=== PATIENT | female | born 1955 | race Caucasian/White ===

== ENCOUNTER 2025-01-15 23:03 | Inpatient (IN) | payer MEDICARE, MEDICAID, SELFPAY ==
--- NOTE | ~2025-01-15 | CT_ITS ---
EXAMINATION: CT HEAD WITHOUT CONTRAST CLINICAL INFORMATION: possibke fall v syncope COMPARISON: None available. TECHNIQUE: Contiguous axial imaging was performed from the skull base to vertex without intravenous administration of contrast. This CT examination was performed using dose optimization techniques as appropriate, variously including the following: *Automated exposure control *Adjustment of mA and/or kV according to patient size (this includes techniques or standardized protocols for targeted exams where dose is matched to indication/reason for exam; i.e. extremities or head) *Use of iterative reconstruction technique DLP: 676 mGy-cm FINDINGS: No acute cortical disruption within the bony calvarium or the included skull base. Patient's motion artifact. No acute intracranial hemorrhage, mass effect, midline shift, hydrocephalus or herniation. Aguilera-white matter differentiation is normal. Posterior cranial fossa contents demonstrated no acute hemorrhage or mass effect. Normal position of the cerebellar tonsils. Sellar/percent region demonstrated no gross masses. Calcified plaques in the cavernous supracavernous segments of the ICAs. Mild multifocal patchy deep periventricular white matter hypodensity. 1.5 cm retention cysts versus polyp, left maxillary sinus. No air-fluid levels in the paranasal sinuses. Secretions in the left nasal cavity. Tympanic cavities and mastoid cells are aerated. No hemorrhage or gross masses in the intraconal or extraconal compartments of the orbits. CT/CT head/brain wo IV con IMPRESSION: No acute fracture or bony calvarium. No acute intracranial hemorrhage. Atherosclerosis disease, intracranial. No acute brain abnormality by CT. Electronically signed by: Alphonso Triana MD 01/16/2025 08:54 AM EDT
--- NOTE | ~2025-01-15 | XR_ITS ---
EXAMINATION: XR CHEST 1 VIEW HISTORY: possible aspiration COMPARISON: There are no prior studies available for comparison. FINDINGS: Two AP portable views of the chest performed at 7:29 AM are submitted. There is hazy opacity in the left lower lung zone which could represent pneumonia or aspiration. The right lung is clear. There is no pleural effusion, pneumothorax, or pulmonary vascular congestion. The heart is normal in size. There is degenerative disc disease of the spine. XR/XR chest 1V IMPRESSION: Hazy opacity in the left lower lung zone which can represent pneumonia or aspiration. Follow-up is recommended. Electronically signed by: Mil Neri MD 01/16/2025 08:02 AM EDT
--- NOTE | ~2025-01-15 | XR_ITS ---
CLINICAL HISTORY: ?hip injury recent or chronic Exam: Pelvis frontal view. Comparison: None Findings: 2 images were obtained. No acute fracture or dislocation. Left hip demonstrates prominent osteophytes, severe joint space narrowing at the weight-bearing portion, heterogeneous subcortical sclerotic changes, femoral head collapsed deformity and lateral subluxation, no erosion. Right hip demonstrates minor osteophytes and mild central joint space narrowing. Unremarkable pubic symphysis and SI joints. Degenerative changes of the included lower lumbar spine, more conspicuous at the L4-5. Unremarkable soft tissue. Impression: Advanced left and mild right hip degenerative changes. This document has been electronically signed by: Nola Carbajal MD on 01/16/2025 08:00:46
[2025-01-15 23:18] VITALS: BP 173/84; PULSE 66; PULSE 75; RESP 20; TEMP 36.9; O2SAT 100; O2SAT 97; BMI 27.3
--- NOTE | 2025-01-15 23:33 | PC.NURSE ---
this RN assumed care of this pt approximately @2320, this pt was BIBLeana from home, OD on a bag of heroine. Pt is A+Ox2 to person and place but not time. Pt is very agitated, non combative, uncooperative w/ care and questions
--- NOTE | 2025-01-15 23:35 | PC.NURSE ---
pt denies SI/HI, safety searched completed by security, contraband removed and disposed by security
[2025-01-16] VITALS (13 sets, daily range): BP systolic 92–149; BP diastolic 50–107; PULSE 53–83; RESP 12–28; TEMP 36.8–37.1; O2SAT 94–97
--- NOTE | 2025-01-16 | ECG_ITS ---
Test Reason : OD Blood Pressure : */* mmHG Vent. Rate : 73 BPM Atrial Rate : 73 BPM P-R Int : 162 ms QRS Dur : 84 ms QT Int : 418 ms P-R-T Axes : 10 41 90 degrees QTcB Int : 460 ms Normal sinus rhythm Normal ECG When compared with ECG of 16-Jan-2025 01:34, No significant change was found Referred By: Jorje Ozuna Electronically Signed By: LISA JOHNSTON
--- NOTE | 2025-01-16 00:23 | PC.NURSE ---
pt's two sons at the bedside, both sons initially searched by security d/t EMS reporting that the two sons also OD's w/ the pt at home. at this time this RN witnessed one son giving the pt an unidentified blue liquid from plastic water bottle. Upon assessment the sons stated Her mouth is really dry , scent of fruity substance notice in room, before this RN asked what it was they had given her the two sons then became agitated and stated Is a doctor going to come and see her? This is crazy she has been here for a minute! Providers made aware, pending new orders
--- NOTE | 2025-01-16 00:31 | ECG_ITS ---
Test Reason : OD Blood Pressure : */* mmHG Vent. Rate : 73 BPM Atrial Rate : 73 BPM P-R Int : 174 ms QRS Dur : 86 ms QT Int : 410 ms P-R-T Axes : 1 39 89 degrees QTcB Int : 451 ms Normal sinus rhythm Minimal voltage criteria for LVH, may be normal variant ( Anshu product ) Borderline ECG No previous ECGs available Referred By: Jorje Ozuna Electronically Signed By: LISA JOHNSTON
--- NOTE | 2025-01-16 00:33 | PC.NURSE ---
pt's daughter called, Owen, states that she is an RN and was requesting an update. Daughter updated on pt condition and plan of care. Daughter Mayra stated that she recommends placing the pt on cardiac monitoring d/t her withdrawals, daughter educated that the pt was BIBA for OD and not withdrawal symptoms and that the pt's ED initial eval did not show any concern requiring cardiac monitoring, however this RN will speak to a provider in order to initiate new orders.
--- NOTE | 2025-01-16 00:51 | ED.OVERDOSE ---
HPI - Overdose General Chief Complaint: Overdose Stated Complaint: Found unresponsive, narcan given, combative Time Seen by Provider: 01/16/25 00:49 History of Present Illness ED Provider: Jorej Ozuna MD HPI Narrative: 69-year-old female limited history due to clinical condition. Apparently was obtunded or on the ground unclear amount of time sons were nearby in the home and felt also to have had respiratory suppression and/or opioid overdose. The patient herself got naloxone x2 was transiently hypoxic and brought in for evaluation. On interview of the patient is not fully cooperative. I asked her and tried to explain to her that we need to get workup including labs she tells me ?I took 1 pill I thought it was cocaine ?she does not recall any details after this. She denies headache neck pain fall chest pain back pain abdominal pain nausea vomiting diarrhea she tells me that she ?has a broken hip ?. Related Data Home Medications ?Medication ?Instructions ?Recorded ?Confirmed methadone 10 mg/mL oral 110 mg PO DAILY 01/16/25 01/16/25 concentrate (Methadone Intensol) Allergies Allergy/AdvReac Type Severity Reaction Status Date / Time No Known Allergies Allergy Verified 01/15/25 23:29 [facility] Past Medical History Medical History (Updated 01/16/25 @ 17:33 by Mey Mendes CNP) Chronic hip pain Social History Social History Patient Tobacco Use Status: Never used Tobacco Smoked in Last 30 Days: No Use of substances other than those prescribed or required for medical reasons: Yes Substance Use Type: Heroin Advance Directives: No Advance Directives Information Provided: Yes Nutrition Risks: No Nutritional Risk Physical Exam Exam: Exam: EXAM: Gen: Alert, delirious confused not oriented sometimes combative and hostile. Dry oral mucosa appears older than stated age. Thin. No obvious overt signs of external trauma Head: Atraumatic Eyes: Anicteric, Normal conjunctiva. 3-4 mm symmetric reactive no proptosis no injury no hyphema ENT: Moist mucosa, no pallor. ? Neck: Supple. No midline tenderness Skin: ?No observable rash or bruising on exposed or examined skin Respiratory: Breathing comfortably, No distress.Clear to auscultation bilaterally, symmetric chest expansion, No wheeze, rales, ronchi. Cardiovascular: Regular rate and rhythm. No murmurs or rub. Well perfused periphery, warm extremities. No edema. ? Abdominal: No focal tenderness. Soft, no objective distension. No palpable masses or obvious organomegaly. ?No guarding, no rebound tenderness or other peritoneal findings. : No flank tenderness. Neuro: Alert. Gross movement of all extremities intact. ? Psych: Delirious, confused. MSK: No grossly visible deformity. Vital signs: See flowsheet Vital Signs: Vital Signs: Last Vital Signs Temp 98.2 F 01/17/25 06:02 Pulse 63 01/17/25 09:08 Resp 18 01/17/25 09:08 BP 126/69 01/17/25 09:08 Pulse Ox 97 01/17/25 09:08 O2 Del Method Room Air 01/17/25 09:08 BMI result Body Mass Index 27.3 Course Course Course Narrative: Jorje Ozuna MD January 16 100: Patient required restraining: Indication for physical or chemical restraint: severe agitation The patient was observed to be agitated disoriented delirious attempting to get out of bed presenting an immediate risk of harm to herself. Verbal de-escalation and redirection techniques were attempted and unsuccessful. Given the patient's impaired decision-making capacity due to delirium/intoxication, and the immediate risk posed, a determination was made that the use of physical followed by chemical restraints was necessary to ensure the safety of the patient and staff and to allow for essential medical/psychiatric evaluation and treatment. The least restrictive measures were chosen, and continuous monitoring was initiated per protocol. This intervention was implemented in accordance with hospital policy and [place] state law regarding emergency restraint use. Date: 01/16/25 Provider: Kolton Day MD 07:02 Patient in physician observation for psychiatric/recovery team evaluation.? Patient presented to the ED with overdose after using a bag of heroin, initially hypoxic but O2 saturation improved to 97% on room air. Patient was agitated on initial presentation and was chemically restrained with a Versed 5 mg IM, Zyprexa 2.5 mg IM and Geodon 20 mg IM. Labs revealed an elevated CK of 507, elevated troponin of 28-repeat labs are pending. CT scan of the head is pending. Alcohol level was below detectable limits. Urine tox screen pending. I will consult recovery team for SUDE evaluation. No acute events reported overnight. No current complaints. VS stable.? Patient is in bed search status/pending CARE team evaluation. Will continue to monitor. 10:52 My interpretation patient's laboratory evaluation is as follows: WBC elevated 11,200. Glucose was elevated 121. AST elevated 33. CK initially was 507 and decreased to 401 which is a downward trend. Urine tox screen was positive for opiates, methadone, fentanyl, benzodiazepines. Alcohol level was below detectable limits. My impression is that the patient may have had a type 2 myocardial injury caused by her use altered mental status secondary to fentanyl overdose. Patient's 1st troponin was elevated at 28.1 and repeat at 06:48 hours was elevated 132.5. I ordered a another repeat at 10:43 hours to see if the patient is trending upward. My interpretation of the patient's 12 EKG done on 01/16/2025 at 08:49 hours is as follows: Sinus bradycardia with a rate of 48, no ST segment elevation, no ST segment depression, inverted T-waves V1 and V2. Compared to an EKG done on 01/16/2025 at 01:36 hours T-wave inversions in V1 and V2 are new. Given her agitation dot required IM chemical restraint and her bradycardia the patient's heroin may have been adulterated with medetomidine (independent marketing consultant sedative). 13:01 I did get more information from patient's son. He states that he injected several bags of ?Nippsy Husle ?heroin. He states that he immediately knew that there was some other drug in the bags that he has since he began hallucinating and became agitated. He states that his mother snorted 1 bag of heroin and passed out and became extremely agitated which is unusual when she uses heroin. Patient's 3rd troponin was 115.2 which is reassuring however this is still significantly high. And I did discuss admission for further monitoring with the covering hospitalist, physician culinary assistant Bernie Mendoza and the patient will be admitted for further treatment. She did ask me to reach out to the tow picker to see if there is any other intervention that needs to be done. 13:21 I did tiger text Dr. Resendiz and he had no specific recommendations regarding the elevated troponin except to treat the patient's drug overdose. Medications Administered Generic Name Dose Route Start Last Admin Trade Name Freq PRN Reason Stop Dose Admin Acetaminophen 650 mg 01/16/25 14:06 01/17/25 06:15 Acetaminophen 325 Mg Tablet PO 650 mg Q6H PRN Administration Pain, Mild 1-3,fever,headache Amoxicillin/Clavulanate Potassium 875 mg 01/16/25 14:45 01/17/25 09:08 Amoxicillin/Potassium Clav 875 Mg Tablet PO 875 mg BID STEPHANIE Administration Aspirin 81 mg 01/17/25 09:00 01/17/25 09:07 Aspirin Enteric Coated 81 Mg Tablet. PO 81 mg DAILY STEPHANIE Administration Lactated Ringer's 1,000 mls @ 80 mls/hr 01/16/25 14:15 01/17/25 03:15 Lr IVCONT 80 mls/hr .[id number] STEPHANIE Administration Sodium Chloride 3 ml 01/16/25 16:00 01/17/25 07:47 0.9 % Sodium Chloride Flush 3 Ml Syringe IVFLUSH Not Given QSHIFT STEPHANIE Discontinued Medications Generic Name Dose Route Start Last Admin Trade Name Freq PRN Reason Stop Dose Admin Sodium Chloride 1,000 mls @ 999 mls/hr 01/16/25 08:18 01/16/25 09:34 Ns IV 01/16/25 09:18 Infused .Q1H1M STA Infusion Methadone HCl 40 mg 01/16/25 17:54 01/16/25 18:06 Methadone Hcl 20 Mg/2 Ml Oral.Conc PO 01/16/25 17:55 40 mg ONCE ONE Administration Midazolam HCl 5 mg 01/16/25 00:49 01/16/25 01:07 Midazolam Hcl 5 Mg/Ml Vial IM 01/16/25 00:50 5 mg ONCE ONE Administration Naloxone HCl 8 mg 01/16/25 00:31 01/16/25 10:43 Naloxone Hcl Nasal Take Home 4 Mg [place] NOSTRILALT 01/16/25 00:32 Not Given ONCE ONE Naloxone HCl 8 mg 01/16/25 00:52 01/16/25 10:44 Naloxone Hcl Nasal Take Home 4 Mg [place] NOSTRILALT 01/16/25 00:53 Not Given ONCE ONE Olanzapine 2.5 mg 01/16/25 00:49 01/16/25 01:07 Olanzapine 10 Mg Vial IM 01/16/25 00:50 2.5 mg STAT STA Administration Ziprasidone 20 mg 01/16/25 02:34 01/16/25 02:41 Ziprasidone Mesylate 20 Mg Vial IM 01/16/25 02:35 20 mg ONCE ONE Administration Medical Decision Making Medical Decision Making MDM Narrative: Medical Decision Makin-year-old female arrived with overdose from home she says it was 1 pill. She did appear to respond to naloxone in the field and was transiently hypoxic this maybe opioid overdose and/or polysubstance or street drug pill contaminant overdose. She is confused and it appears she may have been down on the ground for some time at home and she was initially trying to decline medical workup I do not feel she had the capacity and I feel as obligatory to exclude alternative including toxic or metabolic or infectious etiologies of her encephalopathic presentation. Preliminary Favored Differential Diagnosis: Toxic, metabolic or infectious encephalopathy, dementia, polysubstance use disorder, opioid overdose Plan for broad workup including head and cervical spine CT chest x-ray pelvis x-ray among additional considered etiologies Testing Interpreted Independently: ECG sinus rhythm rate 61 QTC less than 450 no ischemic changes Radiology or Lab testing Results Reviewed: pending, CT pending Consults: Not Applicable Independent Historians/External Chart Reviews: Not Applicable Social Determinants of Health Impacting MDM/Planning: Not Applicable Lab Data 01/16/25 01:58 01/16/25 01:49 Labs: Lab Results 01/16/25 01/16/25 01/16/25 Range/Units 01:49 01:58 06:48 WBC 11.2 H (4.8-10.8) X10*3/uL RBC 4.87 (4.20-5.50) X10*6/uL Hgb 13.5 (12.0-16.0) g/dl Hct 39.6 (37.0-47.0) % MCV 81.3 (80.0-98.0) fL MCH 27.7 (27.0-33.0) pg MCHC 34.1 (31.0-35.0) g/dl RDW 12.9 (11.0-16.0) % Plt Count 238 (160-400) X10*3/uL MPV 9.1 L (9.4-12.3) fL Immature Gran % (Auto) 0.4 (0.0-0.4) % Neut % (Auto) 77.0 H (45-73) % Lymph % (Auto) 10.6 L (20-40) % [place] % (Auto) 8.1 (2-11) % Eos % (Auto) 3.2 (0-4) % Baso % (Auto) 0.7 (0-2) % Lymph # (Auto) 1.2 (1.2-4.9) X10*3/uL [place] # (Auto) 0.9 (0.1-1.2) X10*3/uL Eos # (Auto) 0.4 (0.0-0.4) X10*3/uL Baso # (Auto) 0.1 (0.0-0.2) X10*3/uL Abs Immat Gran (auto) 0.04 H (0.00-0.03) X10*3/uL Absolute Neuts (auto) 8.6 H (2.0-8.3) x10*3/uL Absolute Nucleated RBC 0.000 (0.0-0.012) X10*3/uL Nucleated RBC % (auto) 0.0 (0.0-0.2) /100WBC Sodium 138 (135-145) mmol/L Potassium 4.1 (3.3-5.1) mmol/L Chloride 102 (96-108) mmol/L Carbon Dioxide 24 (22-29) mmol/L Anion Gap 16 (12-20) BUN 14 (9-16) mg/dL Creatinine 0.92 (0.5-1.4) mg/dL Estim Creat Clear Calc 49.2 Estimated GFR > 60 Random Glucose 121 H (60-115) mg/dL Calcium 9.5 (8.4-10.2) mg/dL Magnesium 2.2 (1.6-2.6) mg/dL Total Bilirubin 0.6 (0.0-1.0) mg/dL AST 33 H (5-31) U/L ALT 15 (0-31) U/L Alkaline Phosphatase 81 (39-117) U/L Total Creatine Kinase 507 H 401 H (26-140) U/L Troponin I High Sens 28.1 H 132.5 H* D (<3.5-17.0) ng/L Total Protein 7.6 (6.5-8.0) g/dL Albumin 4.6 (3.5-5.0) g/dL Salicylates < 5.0 L (15-30) mg/dL Urine Opiates Screen (Not Detect) Ur Buprenorphine Scrn (Not Detect) ng/mL Ur Oxycodone Screen (Not Detect) ng/mL Urine Methadone Screen (Not Detect) ng/mL Urine Fentanyl Screen (Not Detect) Acetaminophen < 3 (<30) mcg/mL Ur Barbiturates Screen (Not Detect) Ur Phencyclidine Scrn (Not Detect) Ur Amphetamines Screen (Not Detect) U Benzodiazepines Scrn (Not Detect) Urine Cocaine Screen (Not Detect) U Marijuana (THC) Screen (Not Detect) Ethyl Alcohol < 10 mg/dL 01/16/25 01/16/25 Range/Units 07:10 12:11 WBC (4.8-10.8) X10*3/uL RBC (4.20-5.50) X10*6/uL Hgb (12.0-16.0) g/dl Hct (37.0-47.0) % MCV (80.0-98.0) fL MCH (27.0-33.0) pg MCHC (31.0-35.0) g/dl RDW (11.0-16.0) % Plt Count (160-400) X10*3/uL MPV (9.4-12.3) fL Immature Gran % (Auto) (0.0-0.4) % Neut % (Auto) (45-73) % Lymph % (Auto) (20-40) % [place] % (Auto) (2-11) % Eos % (Auto) (0-4) % Baso % (Auto) (0-2) % Lymph # (Auto) (1.2-4.9) X10*3/uL [place] # (Auto) (0.1-1.2) X10*3/uL Eos # (Auto) (0.0-0.4) X10*3/uL Baso # (Auto) (0.0-0.2) X10*3/uL Abs Immat Gran (auto) (0.00-0.03) X10*3/uL Absolute Neuts (auto) (2.0-8.3) x10*3/uL Absolute Nucleated RBC (0.0-0.012) X10*3/uL Nucleated RBC % (auto) (0.0-0.2) /100WBC Sodium (135-145) mmol/L Potassium (3.3-5.1) mmol/L Chloride (96-108) mmol/L Carbon Dioxide (22-29) mmol/L Anion Gap (12-20) BUN (9-16) mg/dL Creatinine (0.5-1.4) mg/dL Estim Creat Clear Calc Estimated GFR Random Glucose (60-115) mg/dL Calcium (8.4-10.2) mg/dL Magnesium (1.6-2.6) mg/dL Total Bilirubin (0.0-1.0) mg/dL AST (5-31) U/L ALT (0-31) U/L Alkaline Phosphatase (39-117) U/L Total Creatine Kinase (26-140) U/L Troponin I High Sens 115.2 H* (<3.5-17.0) ng/L Total Protein (6.5-8.0) g/dL Albumin (3.5-5.0) g/dL Salicylates (15-30) mg/dL Urine Opiates Screen POSITIVE H (Not Detect) Ur Buprenorphine Scrn Not Detected (Not Detect) ng/mL Ur Oxycodone Screen Not Detected (Not Detect) ng/mL Urine Methadone Screen Positive H (Not Detect) ng/mL Urine Fentanyl Screen POSITIVE H (Not Detect) Acetaminophen (<30) mcg/mL Ur Barbiturates Screen Not Detected (Not Detect) Ur Phencyclidine Scrn Not Detected (Not Detect) Ur Amphetamines Screen Not Detected (Not Detect) U Benzodiazepines Scrn POSITIVE H (Not Detect) Urine Cocaine Screen Not Detected (Not Detect) U Marijuana (THC) Screen Not Detected (Not Detect) Ethyl Alcohol mg/dL Critical Care Time Critical Care Time Critical Care Time: Yes Total Critical Care Time: 55 Attestation: Critical Care: The patient was critically ill with a high probability of imminent or life threatening deterioration. I spent greater than 30 minutes of discontinuous time evaluating the patient,delivering critical care at the bedside, discussing and evaluating pertinent data with consultants. Critical care time does not include time spent performing separately billable procedures or teaching. Total time spent performing critical care was 55 minutes. Discharge Plan Discharge Clinical Impression: Heroin abuse, Fentanyl use disorder, moderate, Myocardial injury, Acute drug intoxication with delirium Acute drug overdose Qualifiers: Encounter type: initial encounter Injury intent: accidental or unintentional Qualified Code(s): T50.901A - Poisoning by unspecified drugs, medicaments and biological substances, accidental (unintentional), initial encounter Patient Disposition: Admitted As Inpatient
[2025-01-16] MEDS: OLANZapine 10 MG VIAL 2.5 MG IM (01:07)
[2025-01-16 02:04] LABS: MANUAL DIFF FLAG NO
[2025-01-16 02:06] LABS: Hematocrit 39.6 % (37.0-47.0); Hemoglobin 13.5 g/dl (12.0-16.0); Imm Gran Abs Auto 0.04 X10*3/uL (0.00-0.03); Imm Gran Pct Auto 0.4 % (0.0-0.4); Lymphocytes Absolute Auto 1.2 X10*3/uL (1.2-4.9); Mean Corpuscular HGB Conc 34.1 g/dl (31.0-35.0); Mean Corpuscular Hemoglobin 27.7 pg (27.0-33.0); Mean Corpuscular Volume 81.3 fL (80.0-98.0); NRBC Abs Auto 0.000 X10*3/uL (0.0-0.012); NRBC Pct Auto 0.0 /100WBC (0.0-0.2); Platelet Count 238 X10*3/uL (160-400); Red Blood Count 4.87 X10*6/uL (4.20-5.50); White Blood Count 11.2 X10*3/uL (4.8-10.8)
[2025-01-16 02:07] LABS: Alanine Aminotransferase 15 U/L (0-31); Albumin Level 4.6 g/dL (3.5-5.0); Alkaline Phosphatase 81 U/L (39-117); Anion Gap 16 (12-20); Aspartate Amino Transferase 33 U/L (5-31); Blood Urea Nitrogen 14 mg/dL (9-16); Calcium 9.5 mg/dL (8.4-10.2); Carbon Dioxide 24 mmol/L (22-29); Chloride 102 mmol/L (96-108); Creatinine Clr Calc Pharmacy 49.2; Estimated Glomerular Filt Rate > 60; Potassium 4.1 mmol/L (3.3-5.1); Sodium 138 mmol/L (135-145); Total Protein 7.6 g/dL (6.5-8.0)
[2025-01-16 02:14] LABS: Troponin-I High Sensitivity 28.1 ng/L (<3.5-17.0)
[2025-01-16 02:30] LABS: Acetaminophen LAB < 3 mcg/mL (<30); Salicylate < 5.0 mg/dL (15-30)
--- NOTE | 2025-01-16 07:02 | PC.NURSE ---
Pt awake, bladder scan >1000 mL. Pt sat up to edge of bed and self transferred to bedside commode. Urine sample pending.
[2025-01-16 07:29] LABS: Troponin-I High Sensitivity 132.5 ng/L (<3.5-17.0)
[2025-01-16 07:35] LABS: Cannabinoid Screen Urine Not Detected (Not Detect)
--- NOTE | 2025-01-16 08:21 | ECG_ITS ---
Test Reason : QT CHECK Blood Pressure : */* mmHG Vent. Rate : 48 BPM Atrial Rate : 48 BPM P-R Int : 170 ms QRS Dur : 82 ms QT Int : 576 ms P-R-T Axes : 3 -1 94 degrees QTcB Int : 514 ms Sinus bradycardia Prolonged QT Abnormal ECG When compared with ECG of 16-Jan-2025 01:36, Vent. rate has decreased by 25 bpm QT has lengthened Referred By: Kolton Day Electronically Signed By: LISA JOHNSTON
--- NOTE | 2025-01-16 08:28 | PC.NURSE ---
during change of shift pt was bladder scanned and had about 1000ml in bladder. she was assisted to commode and urinated 400ml. PVR scan was ~700ml. Pt BP soft, pt lethargic and only wakes to painful stimuli. Dr. Day notified of these findings. 1Liter of NS infusing now. Pt refused harris catheter at this time. plan to monitor urine output.
--- NOTE | 2025-01-16 11:15 | MHC.EDTECH ---
Patient refused the blood work for her troponin, patient afraid of needles due to her childhood Nurse aware
--- NOTE | 2025-01-16 12:25 | PC.NURSE ---
Patient is a 69 female presented to the ED with overdose after using a bag of heroin, initially hypoxic but O2 saturation improved to 97% on room air. Received narcan 8mg in the field. Patient was agitated on initial presentation and was chemically restrained with a Versed 5 mg IM, Zyprexa 2.5 mg IM and Geodon 20 mg IM. Labs revealed an elevated CK of 507, elevated troponin of 28, 2nd troponin elevated and third troponin sent. Patient alert and sleepy. threat monitoring analyst maintained and NSR noted. Lungs with left base crackles. Respirations even and non-labored. Abdomen flat, soft, non-tender with positive bowel sounds. Positive pedal pulses with no edema. Voided 900cc of straw colored urine.
[2025-01-16 12:53] LABS: Troponin-I High Sensitivity 115.2 ng/L (<3.5-17.0)
--- NOTE | 2025-01-16 13:02 | HE.PHANOTE ---
RE: METHADONE DOSING Patient received methadone 110 mg on 01/14/25 @0708 with 6 take home bottles per [facility] at [facility] [phone]. Patient last took her at home dose on 01/15/25 am per nurse Raya Jordan.
--- NOTE | 2025-01-16 14:10 | P.HPHOSP_ITS ---
History of Present Illness Date of Service: 01/16/25 Attending physician on admission: Marge Epps Chief Complaint: Overdose This is a 69-year-old female who presented to the emergency department with an overdose after using heroin. On arrival she was initially hypoxic but her oxygen saturation improved. She received Narcan in the field patient became agitated and required chemical restraint with Versed, Zyprexa and Geodon. Lab work revealed elevated CPK of 5 7, troponin 28 which increased to 132 on repeat. She was initially on observation but due to elevated cardiac enzymes the decision was made to admit her for further evaluation. Patient denies any chest pain, shortness of breath. Her 3rd troponin decreased to 115.2. EKG showed sinus bradycardia with prolonged QT of 514. Tox screen was positive for opiates, methadone, fentanyl, benzodiazepines. Patient reports using 5 bags of heroin daily. Chest x-ray showed hazy opacity in the left lower lung zone which could represent pneumonia or aspiration. Review of Systems 2 Review of Systems: Yes all other systems are reviewed and are negative Constitutional: Constitutional: Denies chills and Denies fever(s) Cardiovascular: Cardiovascular: Denies chest pain, Denies palpitations and Denies dyspnea Respiratory: Respiratory: Denies cough and Denies dyspnea Gastrointestinal: Gastrointestinal: Denies abdominal pain Endocrine: Endocrine: Denies palpitations [facility] Medical History (Updated 01/16/25 @ 17:33 by Mey Mendes CNP) Chronic hip pain Social History Patient Tobacco Use Status: Never used Tobacco Smoked in Last 30 Days: No Use of substances other than those prescribed or required for medical reasons: Yes Substance Use Type: Heroin Advance Directives: No Advance Directives Information Provided: Yes Nutrition Risks: No Nutritional Risk Meds Allergies Allergy/AdvReac Type Severity Reaction Status Date / Time No Known Allergies Allergy Verified 01/15/25 23:29 Active Medications: Current Medications Acetaminophen (Acetaminophen 325 Mg Tablet) 650 mg PO Q6H PRN PRN Reason: Pain, Mild 1-3,fever,headache Calcium Carbonate (Calcium Carbonate 750 Mg Tab.Chew) 750 mg PO Q4H PRN PRN Reason: Heartburn Magnesium Hydroxide (Milk Of Magnesia 30 Ml Oral.Susp) 30 ml PO DAILY PRN PRN Reason: Constipation Melatonin (Melatonin 3 Mg Tablet) 6 mg PO BEDTIME PRN PRN Reason: Insomnia Sodium Chloride (0.9 % Sodium Chloride Flush 3 Ml Syringe) 3 ml IVFLUSH QSHIFT STEPHANIE Home Medications ?Medication ?Instructions ?Recorded ?Confirmed ?Last Taken ?Type methadone 10 mg/mL oral 110 mg PO DAILY 01/16/2502/0201/15/25 History concentrate (Methadone Intensol) Physical Exam 2 Vital Signs and Narrative: Vital Signs: Last Vital Signs Temp 98.3 F 01/16/25 08:00 Pulse 53 01/16/25 12:00 Resp 12 01/16/25 12:00 BP 92/50 L 01/16/25 12:00 Pulse Ox 94 01/16/25 12:00 O2 Del Method Room Air 01/16/25 12:00 BMI result Body Mass Index 27.3 Const: General: cooperative, comfortable, alert and awake O rientation/consciousness: patient oriented x3 Resp: Other: left basilar rales Effort & Inspection: normal respiratory effort, able to speak in complete sentences, no respiratory distress and no use of accessory muscles Cardio: Rate: regular rate GI: Palpation (GI): Soft to palpation Neuro: Other: Grossly nonfocal General: patient oriented x3 Results Labs 01/16/25 01:58 01/16/25 01:49 Labs: Laboratory Results - last 24 hr 01/16/25 01/16/25 01/16/25 01:49 01:58 06:48 MCV 81.3 MCH 27.7 MCHC 34.1 RDW 12.9 Plt Count 238 MPV 9.1 L Immature Gran % (Auto) 0.4 Neut % (Auto) 77.0 H Lymph % (Auto) 10.6 L Meriwether % (Auto) 8.1 Eos % (Auto) 3.2 Baso % (Auto) 0.7 Lymph # (Auto) 1.2 Meriwether # (Auto) 0.9 Eos # (Auto) 0.4 Baso # (Auto) 0.1 Abs Immat Gran (auto) 0.04 H Absolute Neuts (auto) 8.6 H Absolute Nucleated RBC 0.000 Nucleated RBC % (auto) 0.0 Anion Gap 16 Estim Creat Clear Calc 49.2 Estimated GFR > 60 Random Glucose 121 H Calcium 9.5 Total Bilirubin 0.6 AST 33 H ALT 15 Alkaline Phosphatase 81 Total Creatine Kinase 507 H 401 H Total Protein 7.6 Albumin 4.6 Salicylates < 5.0 L Urine Opiates Screen Ur Buprenorphine Scrn Ur Oxycodone Screen Urine Methadone Screen Urine Fentanyl Screen Acetaminophen < 3 Ur Barbiturates Screen Ur Phencyclidine Scrn Ur Amphetamines Screen U Benzodiazepines Scrn Urine Cocaine Screen U Marijuana (THC) Screen Ethyl Alcohol < 10 01/16/25 07:10 MCV MCH MCHC RDW Plt Count MPV Immature Gran % (Auto) Neut % (Auto) Lymph % (Auto) Meriwether % (Auto) Eos % (Auto) Baso % (Auto) Lymph # (Auto) Meriwether # (Auto) Eos # (Auto) Baso # (Auto) Abs Immat Gran (auto) Absolute Neuts (auto) Absolute Nucleated RBC Nucleated RBC % (auto) Anion Gap Estim Creat Clear Calc Estimated GFR Random Glucose Calcium Total Bilirubin AST ALT Alkaline Phosphatase Total Creatine Kinase Total Protein Albumin Salicylates Urine Opiates Screen POSITIVE H Ur Buprenorphine Scrn Not Detected Ur Oxycodone Screen Not Detected Urine Methadone Screen Positive H Urine Fentanyl Screen POSITIVE H Acetaminophen Ur Barbiturates Screen Not Detected Ur Phencyclidine Scrn Not Detected Ur Amphetamines Screen Not Detected U Benzodiazepines Scrn POSITIVE H Urine Cocaine Screen Not Detected U Marijuana (THC) Screen Not Detected Ethyl Alcohol Imaging Radiologist's Impressions: Impressions Chest X-Ray 01/16/25 06:28 IMPRESSION: Hazy opacity in the left lower lung zone which can represent pneumonia or aspiration. Follow-up is recommended. Electronically signed by: Mil Neri MD 01/16/2025 08:02 AM EDT RP Head CT 01/16/25 07:34 IMPRESSION: No acute fracture or bony calvarium. No acute intracranial hemorrhage. Atherosclerosis disease, intracranial. No acute brain abnormality by CT. Electronically signed by: Alphonso Triana MD 01/16/2025 08:54 AM EDT RP Assessment and Plan (1) Heroin abuse: Status: Acute (2) Acute drug overdose: Qualifiers: Encounter type: initial encounter Injury intent: accidental or unintentional Qualified Code(s): T50.901A - Poisoning by unspecified drugs, medicaments and biological substances, accidental (unintentional), initial encounter Status: Acute Plan This is a 69-year-old female with history of opiate abuse on methadone who was brought into the emergency department with presumed drug overdose found to have elevated cardiac enzymes NSTEMI Likely type 2 secondary to demand from drug overdose Troponin peaked at 132 No chest pain Monitor on telemetry, obtain echocardiogram to evaluate for wall motion abnormality Cardiology consultation Drug overdose/history of substance use hold methadone for prolonged QT addiction med consult mild elevation in CPK like gentle IVF follow CPK possible pneumonia cxr with opacity LLL ? pna or aspiration no respiratory symptoms, no hypoxia po augmentin dvt ppx - mechanical devices code status - full code Quality Stroke Does the patient have a stroke diagnosis?: No VTE Prior VTE?: No VTE Risk Level:: Medical - moderate - high VTE Device Contraindication: N/A - Device Ordered VTE Drug Contraindication: N/A - Med Ordered
[2025-01-16] MEDS: Lactated Ringers 1,000 ML 80 ML IVCONT (14:46)
[2025-01-16 14:54] LABS: Magnesium 2.2 mg/dL (1.6-2.6)
--- NOTE | 2025-01-16 15:00 | CA_ITS ---
Transthoracic Echocardiogram Patient (Last, First, Middle): Kristine Marques Ann Gender: Female Date of : 1955 Age: 69 Procedure Date: 01/16/2025 Procedure Type: Transthoracic Echocardiogram Location: ER Height: 154.94 cm Weight: 65.32 kg BSA: 1.64 m2 Heart Rate: 55 bpm BP: 103 / 67 mmHg Marketing Operations Associate: SB Referring MD: Bernie DUTTON Symptoms: NSTEMI Study Quality: Fair ECG Rhythm: Bradycardia Conclusions: - The left ventricular systolic function is normal. The calculated ejection fraction is 62% by biplane method. - No obvious valvular pathology seen on this study. Findings Procedure Information The quality of the study was technically difficult. The study quality is limited by the patients inability to tolerate the test and lung artifact. Left Ventricle Normal left ventricular cavity size. There is normal left ventricular wall thickness. The left ventricular systolic function is normal. The calculated ejection fraction is 62% by biplane method. There is no evidence of regional wall motion abnormalities. Diastolic function is normal for age. Right Ventricle Normal right ventricular cavity size and systolic function. Atria Both atria are normal in size. Aortic Valve There is a normal trileaflet aortic valve. There is no aortic valve stenosis. There is no aortic valve regurgitation. Mitral Valve There is mild anterior mitral leaflet thickening. There is no mitral valve regurgitation. There is no mitral valve stenosis. Pulmonic Valve The pulmonic valve is likely normal. Tricuspid Valve There is mild tricuspid valve regurgitation. There is no evidence of pulmonary hypertension. Great Vessels The asc aorta is normal in size. Venous The inferior vena cava is normal in size and collapses greater than 50% with inspiration. Pericardium/Pleural There is no evidence of pericardial effusion. Prior Study Comparison No prior study available for comparison. Recommendations, Care & Conclusions No obvious valvular pathology seen on this study. Measurements 2D Linear Measurements IVSd: 0.62 0.6-0.9/0.6-1.0 cm LVIDd: 4.68 3.9-5.3/4.2-5.9 cm LVIDd Index: 2.85 2.4-3.2/2.2-3.1 cm/m2 LVIDs: 3.14 2.0-3.6 cm LVPWd: 0.66 0.7-1.1 cm LA Diam: 3.50 2.7-3.8/3.0-4.0 cm LAIDs Index: 2.13 1.5-2.3 cm/m2 LV Mass: 113.91 67-162/88-224 g LV Mass Index: 69.46 43-95/49-115 g/m2 LVOT Diam: 2.00 3.0+(-)1.3 cm 2D Systolic Function EF 4C: 59.60 >55% EF 2C: 67.30 >55% EF BiP: 61.80 >55% Mitral Valve MV Pk E: 0.45 MV PK A: 0.75 MV Decel Time: 400.00 E/A: 0.60 E'Lateral: 5.87 E'Medial: 4.90 E/E' Med: 9.20 E/E' Lat: 7.70 PHT: 117.00 MVA PHT: 1.88 Decel Stephenson: 1.13 Aortic Valve AoV Pk Bebeto: 1.20 AoV Pk Grad: 6.00 IVAN: 2.72 LVOT LVOT Pk Bebeto: 0.97 LVOT Mn Bebeto: 0.69 LVOT VTI: 0.24 LVOT Pk Grad: 4.00 LVOT Mn Grad: 2.00 LVOT Diam: 2.00 LVOT Area: 3.14 Diastolic Function MV Pk E: 0.45 MV Pk A: 0.75 E/A: 0.60 E'Medial: 4.90 E/E' Med: 9.20 E' Laterial: 5.87 E/E' Lat: 7.70 Right Ventricle TAPSE (mm): 23.40 TVS' Bebeto: 13.80 Tricuspid Valve TR Pk Bebeto: 2.32 TR Pk Grad: 22.00 RA Press: 3.00 RVSP: 25.00 Great Vessels Aorta Sinus of Valsalva: 2.40 2.0-3.5 cm Ao Asc: 2.80 2.1-3.4 cm Pulmonary Veins Pulm Vein S/D 1.30 Pulmonary Valve PV Pk Bebeto: 0.81 Peak PV Grad: 3.00 Updated in Other Vendor System with Status of Final Richard Resendiz MD electronically signed on 01/16/2025 4:00:25 PM with status of Final
--- NOTE | 2025-01-16 15:02 | PC.NURSE ---
Echo at the bedside
--- NOTE | 2025-01-16 15:23 | PHA.MEDREC ---
Addendum entered by Lalitha Andrew [facility] 01/16/25 15:37: REVIEWED Original Note: Pharmacy Consult ? Medication Reconciliation Pharmacy has completed the medication reconciliation. Spoke with pt daughter over the phone and she confirmed she knows her mom is taking Methdone daily but other then that she is pretty sure her mother is not taking anything else at this time; I called pt pharmacy where daughter said she went ([facility]) and they have not filled anything for the pt in over a year.
--- NOTE | 2025-01-16 17:33 | HO.ADDICT_ITS ---
History of Present Illness Date of Service: 01/16/2025 Chief Complaint: nstemi od Reason for Consult: opioid overdose Sources of Information: patient interviewed and chart reviewed HPI Narrative: Patient is a 69 year old female who presented to [facility] with concern for opioid overdose. In ambulance required narcan administration and while in ED became quite agitated and required IM medications. Patient admitted with NSTEMI, and question of pneumonia. per chart review, patient reported that she believed she was using cocaine. Son stated he observed her using one bag of fentanyl IN, and she quickly became agitated (which is not the norm for her). Patient seen in room 11 of main ED. She is awake, alert, engaged in interview. Denies any history of illicit opiate use. Reports that she believed she was taking a percocet for her hip pain. She denies any history of overdose. She is engaged in treatment with [facility] and prescribed methadone 110mg QD. Reports that she started methadone after years of being prescribed pain medications and then abruptly discontinuing. Discussed overdose and cardiac concerns Patient somewhat dismissive in attempt to move on from the topic, I will never take another pill again that I didn't get from the pharmacy . Denies any withdrawal sx or pain. Last methadone dose 110mg on 01/15. Labs and EKG reviewed --QTcB 514. Medical Evaluation Reviewed: Yes Review of Systems Constitutional: Reports as per HPI and Reports no additional constitutional complaints Diagnostics Vital Signs (24Hr): Vital Signs - 24 hr 01/15/25 23:18 01/16/25 01:07 01/16/25 01:29 Temperature 98.5 F Pulse Rate 75 71 71 Respiratory Rate 20 23 H 24 H Blood Pressure 173/84 H 147/90 H 149/90 H Pulse Oximetry 100 94 97 Oxygen Delivery Method Room Air Room Air Room Air 01/16/25 01:44 01/16/25 01:59 01/16/25 02:00 Temperature Pulse Rate 78 77 83 Respiratory Rate 20 20 28 H Blood Pressure 138/98 H 136/107 H 143/99 H Pulse Oximetry 95 96 97 Oxygen Delivery Method Room Air Room Air Room Air 01/16/25 02:43 01/16/25 04:32 01/16/25 06:00 Temperature 98.7 F Pulse Rate 74 76 Respiratory Rate 20 16 20 Blood Pressure 139/97 H Pulse Oximetry 97 Oxygen Delivery Method Room Air 01/16/25 08:00 01/16/25 09:34 01/16/25 12:00 Temperature 98.3 F Pulse Rate 57 53 53 Respiratory Rate 17 15 12 Blood Pressure 119/76 92/50 L Pulse Oximetry 94 97 94 Oxygen Delivery Method Room Air Room Air Room Air 01/16/25 16:00 Temperature Pulse Rate 60 Respiratory Rate 22 H Blood Pressure 115/67 Pulse Oximetry 95 Oxygen Delivery Method Room Air BMI result Body Mass Index 27.3 Labs 01/16/25 01:58 01/16/25 01:49 Labs: Laboratory Results - last 48 hr 01/16/25 01/16/25 01/16/25 01:49 01:58 06:48 WBC 11.2 H RBC 4.87 Hgb 13.5 Hct 39.6 MCV 81.3 MCH 27.7 MCHC 34.1 RDW 12.9 Plt Count 238 MPV 9.1 L Immature Gran % (Auto) 0.4 Neut % (Auto) 77.0 H Lymph % (Auto) 10.6 L Nance % (Auto) 8.1 Eos % (Auto) 3.2 Baso % (Auto) 0.7 Lymph # (Auto) 1.2 Nance # (Auto) 0.9 Eos # (Auto) 0.4 Baso # (Auto) 0.1 Abs Immat Gran (auto) 0.04 H Absolute Neuts (auto) 8.6 H Absolute Nucleated RBC 0.000 Nucleated RBC % (auto) 0.0 Sodium 138 Potassium 4.1 Chloride 102 Carbon Dioxide 24 Anion Gap 16 BUN 14 Creatinine 0.92 Estim Creat Clear Calc 49.2 Estimated GFR > 60 Random Glucose 121 H Calcium 9.5 Magnesium 2.2 Total Bilirubin 0.6 AST 33 H ALT 15 Alkaline Phosphatase 81 Total Creatine Kinase 507 H 401 H Troponin I High Sens 28.1 H 132.5 H* D Total Protein 7.6 Albumin 4.6 Salicylates < 5.0 L Urine Opiates Screen Ur Buprenorphine Scrn Ur Oxycodone Screen Urine Methadone Screen Urine Fentanyl Screen Acetaminophen < 3 Ur Barbiturates Screen Ur Phencyclidine Scrn Ur Amphetamines Screen U Benzodiazepines Scrn Urine Cocaine Screen U Marijuana (THC) Screen Ethyl Alcohol < 10 01/16/25 01/16/25 07:10 12:11 WBC RBC Hgb Hct MCV MCH MCHC RDW Plt Count MPV Immature Gran % (Auto) Neut % (Auto) Lymph % (Auto) Nance % (Auto) Eos % (Auto) Baso % (Auto) Lymph # (Auto) Nance # (Auto) Eos # (Auto) Baso # (Auto) Abs Immat Gran (auto) Absolute Neuts (auto) Absolute Nucleated RBC Nucleated RBC % (auto) Sodium Potassium Chloride Carbon Dioxide Anion Gap BUN Creatinine Estim Creat Clear Calc Estimated GFR Random Glucose Calcium Magnesium Total Bilirubin AST ALT Alkaline Phosphatase Total Creatine Kinase Troponin I High Sens 115.2 H* Total Protein Albumin Salicylates Urine Opiates Screen POSITIVE H Ur Buprenorphine Scrn Not Detected Ur Oxycodone Screen Not Detected Urine Methadone Screen Positive H Urine Fentanyl Screen POSITIVE H Acetaminophen Ur Barbiturates Screen Not Detected Ur Phencyclidine Scrn Not Detected Ur Amphetamines Screen Not Detected U Benzodiazepines Scrn POSITIVE H Urine Cocaine Screen Not Detected U Marijuana (THC) Screen Not Detected Ethyl Alcohol Imaging Radiology Impressions: ITS Impressions Chest X-Ray 01/16/25 06:28 IMPRESSION: Hazy opacity in the left lower lung zone which can represent pneumonia or aspiration. Follow-up is recommended. Electronically signed by: Mil Neri MD 01/16/2025 08:02 AM EDT RP Head CT 01/16/25 07:34 IMPRESSION: No acute fracture or bony calvarium. No acute intracranial hemorrhage. Atherosclerosis disease, intracranial. No acute brain abnormality by CT. Electronically signed by: Alphonso Triana MD 01/16/2025 08:54 AM EDT RP Mental Status Exam Mental Status Exam Level of Consciousness: Awake, Appropriate and Alert Patient Behavior: Appropriate and Talkative Affect Description: Calm Speech Pattern: Clear Thought Process: Intact Thought Content: positive for Intact Judgement: Fair Medications Medications Current Medications Acetaminophen (Acetaminophen 325 Mg Tablet) 650 mg PO Q6H PRN PRN Reason: Pain, Mild 1-3,fever,headache Amoxicillin/Clavulanate Potassium (Amoxicillin/Potassium Clav 875 Mg Tablet) 875 mg PO BID [facility] Last Admin: 01/16/25 15:26 Dose: 875 mg Aspirin (Aspirin Enteric Coated 81 Mg Tablet.Dr) 81 mg PO DAILY [facility] Calcium Carbonate (Calcium Carbonate 750 Mg Tab.Chew) 750 mg PO Q4H PRN PRN Reason: Heartburn Lactated Ringer's (Lr) 1,000 mls @ 80 mls/hr IVCONT .[id number] [facility] Last Admin: 01/16/25 14:46 Dose: 80 mls/hr Magnesium Hydroxide (Milk Of Magnesia 30 Ml Oral.Susp) 30 ml PO DAILY PRN PRN Reason: Constipation Melatonin (Melatonin 3 Mg Tablet) 6 mg PO BEDTIME PRN PRN Reason: Insomnia Sodium Chloride (0.9 % Sodium Chloride Flush 3 Ml Syringe) 3 ml IVFLUSH QSHIFT [facility] Last Admin: 01/16/25 15:27 Dose: Not Given Allergies Allergies Allergy/AdvReac Type Severity Reaction Status Date / Time No Known Allergies Allergy Verified 01/15/25 23:29 Assessment & Plan Assessment & Plan (1) Opioid use disorder: Status: Acute Code(s): F11.90 - Opioid use, unspecified, uncomplicated Assessment and Plan: * methadone 40mg today --recheck EKG , if okay resume full dose of methadone 110mg in AM (01/17) * already connected to [facility] * take home narcan at discharge * 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 PMFSH Past Medical History Medical History (Updated 01/16/25 @ 17:33 by Mey Mendes CNP) Chronic hip pain Social History Social History Smoked in Last 30 Days: No Use of substances other than those prescribed or required for medical reasons: Yes Substance Use Type: Heroin Advance Directives: No Advance Directives Information Provided: Yes
[2025-01-16] MEDS: methADONE HCl 20 MG/2 ML ORAL.CONC 40 MG PO (18:06)
--- NOTE | 2025-01-17 | ECG_ITS ---
Test Reason : PROLONG QTC Blood Pressure : */* mmHG Vent. Rate : 61 BPM Atrial Rate : 61 BPM P-R Int : 148 ms QRS Dur : 78 ms QT Int : 478 ms P-R-T Axes : 17 15 84 degrees QTcB Int : 481 ms Normal sinus rhythm Possible Anterior infarct , age undetermined Abnormal ECG When compared with ECG of 16-Jan-2025 08:49, No significant change was found Referred By: Marge Epps Electronically Signed By: LISA JOHNSTON
[2025-01-17 00:27] VITALS: BP 105/60; PULSE 57; RESP 18; TEMP 36.9; O2SAT 96
--- NOTE | 2025-01-17 00:35 | PC.NURSE ---
assist to commode at bedside, pt resting in bed comfortably, no complaints or needs at this time. pt a/o x4, calm and cooperative.
[2025-01-17] MEDS: Lactated Ringers 1,000 ML 80 ML IVCONT (03:15)
[2025-01-17 06:02] VITALS: BP 106/66; PULSE 62; RESP 12; TEMP 36.8; O2SAT 96
--- NOTE | 2025-01-17 06:16 | PC.NURSE ---
pt medicated per AUG for a headache
--- NOTE | 2025-01-17 06:55 | PC.NURSE ---
pt refused AM lab draw
[2025-01-17 08:52] VITALS: BP 126/66; PULSE 67; RESP 18; O2SAT 97
[2025-01-17] MEDS: Aspirin Enteric Coated 81 MG TABLET.DR PO (09:07)
[2025-01-17 09:08] VITALS: BP 126/69; PULSE 63; RESP 18; O2SAT 97
--- NOTE | 2025-01-17 10:13 | PM.DS ---
DS: Providers Provider Date of Service: 01/17/25 Date of admission: 01/16/25 14:02 Date of discharge: 01/17/25 Primary care physician: Unknown Physician Consults: 01/16/25 07:16 ED Recovery Team Consult Stat Comment: Reason for consultation: Heroin OD, given Narcan 01/16/25 14:21 Addiction Medicine Provider Routine Consulting Provider: Addiction Covering Reason for consultation: heroin OD; on methadone; prolonged QT Has provider been notified: No Attending physician on discharge: Marge Epps Discharging clinician: Marge Epps DS: Diagnosis Discharge Diagnosis (1) Heroin abuse: Status: Acute (2) Acute drug overdose: Status: Acute DS: Summary Hospital Course Hospital Course: HPI: 69-year-old female who presented to the emergency department with an overdose after using heroin. On arrival she was initially hypoxic but her oxygen saturation improved. She received Narcan in the field patient became agitated and required chemical restraint with Versed, Zyprexa and Geodon. Lab work revealed elevated CPK of 5 7, troponin 28 which increased to 132 on repeat. She was initially on observation but due to elevated cardiac enzymes the decision was made to admit her for further evaluation. Patient denies any chest pain, shortness of breath. Her 3rd troponin decreased to 115.2. EKG showed sinus bradycardia with prolonged QT of 514. Tox screen was positive for opiates, methadone, fentanyl, benzodiazepines. Patient reports using 5 bags of heroin daily. Chest x-ray showed hazy opacity in the left lower lung zone which could represent pneumonia or aspiration. Hospital course: Patient was admitted for possible drug overdose-urine drug screen positive for fentanyl ,opioids: Patient herself ?Narcan x2, in the ED found to have elevated troponin, CPK, prolonged QT, and chest x-ray showed left lower lung opacity: Patient was given gentle hydration, monitor on tele, echo was done-EF seems fine. Troponin leak likely secondary to rhabdo/drug overdose. Currently patient is asymptomatic, EKG repeated QTC improved, hr 50-60/min. We will start patient home methadone. Patient was given p.o. Augmentin for 1 week for pneumonia. Patient was strongly advised to abstain from recreational drug use. She says that it was a mistake she will never use it again. plan: Strongly advised to abstain from recreational drug use. Patient says that she will never use recreational drugs . Continue methadone, take home Narcan given. Complete Augmentin for 1 week, repeat chest imaging to see resolution pneumonia. Above management discussed with the patient and her daughter in detail length they both understand and in agreement with the above plan, time spent 45 minute. All questions answered. Time Attestation Total time managing care of this patient today: 45 mintues. Discharge Coordination Time (in mins): 45 min Quality: Safe Use of Opioids Does Pt have an Active Cancer Diagnosis on the Problem List?: No Quality: Stroke Does the patient have a stroke diagnosis?: No Physical Exam Exam: Exam: Appearance: Alert.? Oriented X3. cvs: rrr, [id number] , no murmur res: clear to auscultation ,no rhonchii or wheezing abd: no rebound or guarding ,nt, bs present. ext pulses present , no cyanosis . neuro: axo3 , nonfocal. Vital Signs: Vital Signs: Last Vital Signs Temp 98.2 F 01/17/25 06:02 Pulse 63 01/17/25 09:08 Resp 18 01/17/25 09:08 BP 126/69 01/17/25 09:08 Pulse Ox 97 01/17/25 09:08 O2 Del Method Room Air 01/17/25 09:08 BMI result Body Mass Index 27.3 DS: Data Data Completed and Pending Labs on day of discharge: Laboratory Results - last 24 hr 01/16/25 01/16/25 06:48 12:11 Magnesium 2.2 Troponin I High Sens 115.2 H* Imaging Chest x-ray: Radiologist's impression: ITS Impressions Chest X-Ray 01/16/25 06:28 IMPRESSION: Hazy opacity in the left lower lung zone which can represent pneumonia or aspiration. Follow-up is recommended. Head CT 01/16/25 07:34 IMPRESSION: No acute fracture or bony calvarium. No acute intracranial hemorrhage. Atherosclerosis disease, intracranial. No acute brain abnormality by CT. Discharge Plan Discharge Anticipated Discharge Date/Time: 01/17/25 10:02 Patient Disposition: Home, Self-Care Discharge Diagnosis: Drug overdose,aspirtional pneumonia Referrals: Physician,Unknown J [Primary Care Provider, Medical] - 1 Week Discharge Medications: New amoxicillin-pot clavulanate 875-125 mg Tablet 1 tab PO BID Qty: 14 0RF Continued methadone [Methadone Intensol] 10 mg/mL Concentrate 110 mg PO DAILY Discharge Orders: Discharge Order (Routine); Ordered 01/17/25 Ordered By: Marge Epps Diet: Advance to usual diet Activity on Discharge: As tolerated Stand Alone Forms: Patient Portal Discharge page Print Language: [place] Care Plan Goals: as below. Health Concerns: As below. Plan of Treatment: Strongly advised to abstain from recreational drug use. Continue methadone, take home Narcan given. Complete Augmentin for 1 week, repeat chest imaging to see resolution pneumonia. Assessment: As above. Discharge Date/Time: 01/17/25 11:48
[2025-01-17] MEDS: Naloxone HCl Nasal TAKE HOME 4 MG SPRAY 8 MG NOSTRILALT (11:41)
--- NOTE | 2025-01-17 11:41 | PC.NURSE ---
dough sheeter in to [place] patient, paperwork gone over, pt in agreement with take home narcan, IV removed, pt reporting she does not want to take the methadone here this AM because she has a take home dose for today. Letter given to reflect the 40mg given yesterday by [facility]. Pt talking with addiction medicine at this time, and will then be able to ambulate out of ED to wait for ride. Primary nursing aware.
[2025-01-17 11:43] VITALS: BP 126/69; PULSE 63; RESP 18; TEMP -17.7; TEMP 0; O2SAT 97
--- NOTE | 2025-01-17 12:01 | MHC.RECOVRN ---
10AM-reviewed pt. chart for EKG. Communicated newest results to Mey Mendes NP and recommendation received to re-start home methadone dosing at 110mg as verified by pharmacy. Dr. Epps contacted and order placed by him.
--- NOTE | 2025-01-17 14:55 | MHC.CM.PN ---
pt dcd self care prior to being seen by cm
== END 2025-01-17 11:48 | disposition home or self-care (01) | DRG 917 ==
LOC: HO.ED 01-16 13:16 → HO.EDOVER 01-16 14:09
PROVIDERS: Emergency Medicine; Admitting Provider Physician Assistant Medical; Emergency Provider Emergency Medicine Emergency Medical Services; Visit Provider Internal Medicine
DX: T40.1X1A Poisoning by heroin, accidental (unintentional), initial encounter (principal); I21.A1 Myocardial infarction type 2; J69.0 Pneumonitis due to inhalation of food and vomit; F11.20 Opioid dependence, uncomplicated
CPT/HCPCS: 36415; 70450; 71045; 72170; 80053; 80143; 80179; 80307; 82550; 83735; 84484; 85025; 93005; 93306; 99285; J2250; J2359; J3486; J7120; S9485

== ENCOUNTER → 2025-01-16 00:31 | Outpatient (BNV) | payer MEDICARE, MEDICAID, SELFPAY | PROVIDERS: Emergency Provider Emergency Medicine Emergency Medical Services; Visit Provider Internal Medicine | DX: I21.4 Non-ST elevation (NSTEMI) myocardial infarction (principal); I36.1 Nonrheumatic tricuspid (valve) insufficiency; T50.901A Poisoning by unspecified drugs, medicaments and biological substances, accidental (unintentional), initial encounter; R00.1 Bradycardia, unspecified | CPT/HCPCS: 93010; 93306 ==

== ENCOUNTER → 2025-01-16 00:31 | Outpatient (BNV) | payer MEDICARE, MEDICAID, SELFPAY | PROVIDERS: Emergency Provider Emergency Medicine Emergency Medical Services; Visit Provider Radiology Diagnostic Radiology | DX: R91.8 Other nonspecific abnormal finding of lung field (principal) | CPT/HCPCS: 71045 ==

== ENCOUNTER 2025-01-16 14:02 | Outpatient (BNV) | payer MEDICARE, MEDICAID, SELFPAY | END 2025-01-17 08:02 | PROVIDERS: Admitting Provider Physician Assistant Medical; Emergency Provider Emergency Medicine Emergency Medical Services; Visit Provider Internal Medicine | DX: I45.81 Long QT syndrome (principal) | CPT/HCPCS: 93010 ==

== ENCOUNTER → 2025-01-16 14:02 | Outpatient (BNV) | payer MEDICARE, MEDICAID, SELFPAY | PROVIDERS: Admitting Provider Physician Assistant Medical; Emergency Provider Emergency Medicine Emergency Medical Services; Visit Provider Physician Assistant Medical | DX: T40.1X1A Poisoning by heroin, accidental (unintentional), initial encounter (principal); I21.4 Non-ST elevation (NSTEMI) myocardial infarction; F11.10 Opioid abuse, uncomplicated | CPT/HCPCS: 99223; 99239 ==

== ENCOUNTER → 2025-01-16 14:02 | Outpatient (BNV) | payer MEDICARE, MEDICAID, SELFPAY | PROVIDERS: Admitting Provider Physician Assistant Medical; Emergency Provider Emergency Medicine Emergency Medical Services; Visit Provider Nurse Practitioner Psychiatric/Mental Health | DX: F11.90 Opioid use, unspecified, uncomplicated (principal) | CPT/HCPCS: 99232 ==